=== PATIENT | male | born 2000 | race Caucasian/White ===

== ENCOUNTER 2025-01-05 08:03 | Day surgery (SDC) | payer OTHER, SELFPAY ==
[2025-01-03 08:12] VITALS: BMI 27.6
[2025-01-05] VITALS (7 sets, daily range): BP systolic 118–139; BP diastolic 72–79; PULSE 67–88; RESP 16–30; TEMP 36.1–36.6; O2SAT 94–99; BMI 27.7
--- NOTE | 2025-01-05 | DI.RAD.S_ITS ---
PROCEDURE: XR CLAVICLE LT INDICATIONS: post-op TECHNIQUE: 2 views of the clavicle were acquired. COMPARISON: [facility], GERALDINE, XR CLAVICLE LT, 01/02/2025, 11:01. FINDINGS: For intraoperative spot fluoroscopic radiographs of the left clavicle demonstrate removal of the previously noted sideplate and fixation screws and placement of 2 new ORIF sideplate and fixation screws. Evaluation of the clavicle is limited. Fluoroscopic dosimetry is not delineated. IMPRESSION: Postoperative changes ORIF left distal clavicle. Continued follow-up is needed Dictated by: Jarret Del Toro M.D. on 01/05/2025 at 14:08 Approved by: Jarret Del Toro M.D. on 01/05/2025 at 14:11
--- NOTE | 2025-01-05 | DI.RAD.S_ITS ---
PROCEDURE: XR CLAVICLE LT INDICATIONS: LT CLAVICAL SURGERY TECHNIQUE: 2 views of the clavicle were acquired. COMPARISON: [facility], GERALDINE, XR CLAVICLE LT, 01/05/2025, 12:14. [facility], GERALDINE, XR CLAVICLE LT, 01/02/2025, 11:01. FINDINGS: Bones: Redemonstration of left clavicle fixation hardware without evidence of complication.. No suspicious bony lesions. Soft tissues: Overlying postsurgical changes. IMPRESSION: Left clavicle fixation hardware without evidence of complication Dictated by: Zan Cosme M.D. on 01/06/2025 at 13:55 Approved by: Zan Cosme M.D. on 01/06/2025 at 13:56
[2025-01-05] MEDS: ACETAMINOPHEN 325 MG TABLET 975 MG PO (08:28)
[2025-01-05] MEDS: LACTATED RINGERS 1,000 ML 42 ML IV (08:28)
--- NOTE | 2025-01-05 08:48 | PM.PREOP ---
Pre-operative Note Interval Note History & Physical reviewed/Exam performed by Physician: Yes Changes to H&P: No
[2025-01-05] MEDS: GABAPENTIN 300 MG CAPSULE PO (09:14)
[2025-01-05] MEDS: SCOPOLAMINE 1 PATCH TOP (09:15)
--- NOTE | 2025-01-05 10:05 | SUR.OPER ---
Supine on padded OR bed, head on pillow, arms secured on padded arm boards at <90 degrees abduction, legs uncrossed, safety belt at thigh, tape over blanket over lower legs. Surgeon approved of final position prior to start of procedure. Left arm padded and wrapped for protection by surgeon.
--- NOTE | 2025-01-05 13:16 | P.OP_ITS ---
Operative Date/Time/Diagnoses Date of procedure: 01/05/25 Time of procedure: 09:00 Pre-op diagnosis: Left Distal Clavicle Fracture Post-op diagnosis: same Procedure & Clinicians Procedure: ORIF of the LEFT Distal Clavicle Fracture, hardware removal from the left clavicle Same procedure(s) as scheduled: Yes Surgeon: Jarret Pinon Assisted?: Yes Transfer Table Operator Helper: Cheryl Garvey Anesthesia Type: General Operative Notes Findings: Unstable, displaced distal clavicle fracture just distal to the plate. Closure Type: primary Specimen(s): none sent Applied: none Estimated Blood Loss (mL): 50 Blood products transfused: none Procedure in detail: Op Note Date of Procedure: January 05, 2025 Pre-Op Diagnosis: Left Closed displaced clavicle fracture just distal to previous clavicle plate Post-Op Diagnosis: Same as above Procedure(s): Open Reduction and Internal Fixation of the Clavicle; hardware removal from the left clavicle Surgeon: Jarret Pinon MD Co-Surgeon: HAMILTON Bonilla Physician Transfer Table Operator Helper was used throughout the entirety of the case. ?This operation could not have been safely performed (without compromising the technical results or length of the procedure) without the assistance of a skilled surgical services tech. A surgical services tech was medically necessary for room set up, patient positioning, draping, retraction, visualization, reduction, fixation and closure. ?They were essential ?for the success of the case. Anesthesia Type: General EBL: 50 mL Urine Output : N/A Complications: None. Implants/Grafts: [employer] distal clavicular plates both anterior and superior plates. DB Bx 1 cc Drains: No lines, drains, or airways are recorded for this episode. Findings: Displaced clavicle fracture. It was reduced and fixed with interval fixation. Narrative: The patient was taken to the OR and administered anesthetic and preoperative antibiotics. They were placed into the b supine position with the neck neutral. They were prepped and draped in the standard fashion. A timeout was held and we proceeded. A 10cm incision was made anterior to the clavicle and the platysma was incised with electrocautery. A full thickness flap was created over the fascia and this was brought to the superior clavicle. The fascia was split over the clavicle and freed from the bone with a james. The mid clavicle plate was identified and exposed. This was removed without complication. 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 There was significant amounts of fibrous tissue and cortical bone that started to heal over the distal fragment medullary canal. The medullary canals were recannulated with a 2.0 mm drill. The medial fragment was missing a large inferior component which would likely need a bone substitute. The fracture ends were debrided of early callus and blocks to reduction. The fracture was reduced with a [id number] from the distal end of the clavicle into 1 of the previous clavicle plate holes. This held a good reduction. Fluoroscopy confirmed reduction. Since the [id number] was on the superior aspect of the bone we decided to plate anteriorly 1st. We utilized cortical screws medially and placed locking screws laterally. A superior plate was applied and it was found to contour nicely to the bone. Again we utilized locking screws distally and cortical screws medially. Demineralized bone matrix was placed within the fracture site especially along the inferior border of the fracture.. Xrays confirmed plate position, reduction, and screw length. The wound was irrigated with saline and a layered closure was performed with 0-vicryl in the fascia, 2-0 vicryl in the platysma, 2-0 vicryl in the dermis, and horizontal sutures for the skin. Sterile dressing was applied. Patient transferred to recovery room bed. Patient transferred to recovery room in stable condition. Plan: Pendulum for 2 weeks Sling night time nanny for 6 weeks - may remove for ROM Weeks 2-6 - active and passive ROM below the horizon Weeks 6-12 - full active ROM, no strengthening Weeks 12 and beyond - gradual strengthening and introduction of dynamic activities Jarret Pinon MD Complications: none Post-operative Condition: stable Disposition: PACU
[2025-01-05] MEDS: hydrOXYzine 50 MG/ML INJ 25 MG IM (13:17)
--- NOTE | 2025-01-05 14:06 | SUR.PHASEII ---
1330 sling applied prior to discharge.
== END 2025-01-05 13:30 | disposition home or self-care (01) ==
PROVIDERS: PCP Physician Assistant; Referring Provider Orthopaedic Surgery; Visit Provider Orthopaedic Surgery
PROC: 0PSB04Z Reposition Left Clavicle with Internal Fixation Device, Open Approach (ICD-10-PCS; CPT 23515; principal; 2025-01-05 09:15)
DX: S42.032A Displaced fracture of lateral end of left clavicle, initial encounter for closed fracture (principal); Y93.B2 Activity, push-ups, pull-ups, sit-ups; F17.210 Nicotine dependence, cigarettes, uncomplicated
CPT/HCPCS: 23515; 20680; 73000; 76000; C1713; J0689; J1100; J1171; J1885; J2250; J2405; J2704; J3010; J3410; J3490; J7120